=== PATIENT | female | born 1970 | race Caucasian/White ===

== ENCOUNTER 2016-09-30 12:45 | Emergency (ER) | payer BC ==
[~2016-09-30] VITALS: Ht 162.6 cm; Wt 100.0 kg
[~2016-09-30 12:45] MED LIST: AMIT50TA3 PO; AMLO5TAB4 PO; CARI350T PO; FERR-55 PO; GEMF600T60 PO; GLIM2TAB PO; LEVO100T82 PO; LORA-441 PO; METO-448 PO; NORC 5-325 GTB; PANT40TA3 PO; SUMA100T9 PO; TIZA2TAB PO; TOPI-44 PO
[2016-09-30 12:50] VITALS: Ht 162.6 cm; Wt 100.0 kg
[2016-09-30 13:51] LABS: ADD SCAN DIFF NO
[2016-09-30 14:17] LABS: BASOPHIL # 0.1 10^3/ul (0.0-0.1); BASOPHILS % 0.8 % (0.0-2.0); EOSINOPHILS # 0.3 10^3/ul (0.0-0.5); EOSINOPHILS % 2.9 % (0.0-7.0); HEMATOCRIT 40.5 % (37.0-47.0); HEMOGLOBIN 13.2 g/dl (12.0-16.0); LYMPHOCYTES # 3.7 10^3/ul (0.8-2.9); LYMPHOCYTES % 32.8 % (15.0-51.0); MEAN CORPUSCULAR HEMOGLOBIN 27.9 pg (29.0-33.0); MEAN CORPUSCULAR HGB CONC 32.6 g/dl (32.0-37.0); MEAN CORPUSCULAR VOLUME 85.6 fl (82.0-101.0); MONOCYTE # 0.5 10^3/ul (0.3-0.9); MONOCYTES % 4.7 % (0.0-11.0); NEUTROPHIL # 6.5 10^3/ul (1.6-7.5); NEUTROPHILS % 58.4 % (39.0-77.0); PLATELET COUNT 249 10^3/UL (140-415); RED BLOOD COUNT 4.73 10^6/ul (4.20-5.40); WHITE BLOOD COUNT 11.2 10^3/ul (4.8-10.8)
--- NOTE | 2016-09-30 14:50 | ERA ---
ER Documentation Chief Complaint Date/Time DATE: 09/30/16 TIME: 14:46 Chief Complaint TOTAL BODY ACHE, HEADACHE AND SORE THROAT HPI This a 45-year-old female who was diagnosed with a pulmonary embolism 3 months ago and was taking Coumadin. She was switched to Eliquis 3 days ago. She says ever since she started taking Eliquis she has had nausea vomiting in the morning and sometimes run the afternoon she is also having chest pain described as a pressure sensation with some shortness of breath and having some sense of impending doom and panic. She says she is under a lot of stress but no history of panic or anxiety attacks in the past. She called the ambulance to pick her up and then on the way in here the patient grabbed her own throat and started strangling herself. Paramedics say she was doing a hard and long enough that her lips started to turn blue. There were able to pull her hands off of her neck successfully then later in the ambulance ride she did it again. When I questioned the patient about this and her being suicidal she starts to cry and nods her head "yes". She says she is just tired of it all. She says she was fine until she started taking this Eliquis medication ROS All systems reviewed and are negative except as per history of present illness. Medications Home Meds Active Scripts Pantoprazole* (Protonix*) 40 Mg Tablet., 40 MG PO DAILY, #20 TAB Prov:EMANUEL THORPE MD 11/09/14 Reported Medications Amitriptyline Hcl* (Amitriptyline Hcl*) 50 Mg Tablet, 50 MG PO HS, TAB 11/09/14 Gemfibrozil* (Gemfibrozil*) 600 Mg Tablet, 600 MG PO BID, TAB 11/09/14 Levothyroxine Sodium* (Levoxyl*) 100 Mcg Tablet, 100 MCG PO AC BREAKFAST, TAB 11/09/14 Glimepiride* (Glimepiride*) 2 Mg Tablet, 2 MG PO WITH BREAKFAST, TAB 11/09/14 Sumatriptan Succinate* (Imitrex*) 100 Mg Tablet, 100 MG PO BID Y for HEADACHE, TAB May repeat after 2 hours if needed; MAX 200 mg/24 hours 11/09/14 Tizanidine Hcl* (Tizanidine Hcl*) 2 Mg Tablet, 2 MG PO QHS Y for SLEEP, TAB 11/09/14 Amlodipine Besylate* (Norvasc*) 5 Mg Tablet, 5 MG PO DAILY, TAB 11/09/14 Topiramate* (Topiramate*) 25 Mg Tablet, 25 MG PO BID, TAB 11/09/14 Hydrocodone Bit-Acetaminophen* ([place]*) 1 Tab Tab, 1 TAB GTB Q6 Y for PAIN, TAB 06/18/13 Carisoprodol* (Soma*) 350 Mg Tablet, 350 MG PO TID 06/18/13 Lorazepam* (Ativan*) 0.5 Mg Tablet, 1 MG PO Q8NARC Y for ANXIETY 06/18/13 Ferrous Sulfate* (Ferrous Sulfate*) 325 Mg Tablet, 325 MG PO BID 06/18/13 Metoprolol Tartrate* (Lopressor*) 25 Mg Tab, 25 MG PO BID, TAB 06/18/13 Allergies Allergies: Coded Allergies: metoclopramide (Verified Allergy, Unknown, 11/09/14) PMhx/Soc History of Surgery: Yes (COLON SURGERY) Anesthesia Reaction: No Hx Neurological Disorder: No Hx Respiratory Disorders: No Hx Cardiac Disorders: No Hx Psychiatric Problems: No Hx Miscellaneous Medical Probl: Yes (HISTORY OF DIVERTICULITIS) Hx Alcohol Use: No Hx Substance Use: No Hx Tobacco Use: No Smoking Status: Never smoker FmHx Family History: No coronary disease Physical Exam Vitals Vital Signs Date Time Temp Pulse Resp B/P Pulse Ox O2 Delivery O2 Flow Rate FiO2 09/30/16 14:38 98.1 90 20 133/78 95 Room Air 09/30/16 12:50 99.6 112 20 150/80 98 Physical Exam Const: Well-developed, well-nourished Head: Atraumatic, normocephalic Eyes: Normal Conjunctiva, PERRLA, EOMI, normal sclera, no nystagmus ENT: Normal External Ears, Nose and Mouth, moist mucus membranes. Neck: Full range of motion. No meningismus, no lymphadenopathy. Resp: Clear to auscultation bilaterally, no wheezing, rhonchi, rales Cardio: Regular rate and rhythm, no murmurs, S1 S2 present Abd: Soft, non tender x 4, non distended. Normal bowel sounds, no guarding or rebound, no pulsitile abdominal masses or bruits Skin: No petechiae or rashes, no ecchymosis , no maculopapular rash Back: No midline or flank tenderness Ext: No cyanosis, or edema, FROM x 4, normal inspection, neurovascularly intact x 4 Neur: Awake and alert, STR 5/5 x 4, sensation intact x 4, no focal findings, cerebellum intact Psych: Anxious and tearful, admits suicidal ideation Result Diagram: 09/30/16 1305 Results 24 hrs Laboratory Tests Test 09/30/16 13:05 White Blood Count 11.210^3/ul Red Blood Count 4.7310^6/ul Hemoglobin 13.2g/dl Hematocrit 40.5% Mean Corpuscular Volume 85.6fl Mean Corpuscular Hemoglobin 27.9pg Mean Corpuscular Hemoglobin Concent 32.6g/dl Red Cell Distribution Width 16.0% Platelet Count 72603^3/UL Mean Platelet Volume 12.0fl Neutrophils % 58.4% Lymphocytes % 32.8% Monocytes % 4.7% Eosinophils % 2.9% Basophils % 0.8% Nucleated Red Blood Cells % 0.0/100WBC Neutrophils # 6.510^3/ul Lymphocytes # 3.710^3/ul Monocytes # 0.510^3/ul Eosinophils # 0.310^3/ul Basophils # 0.110^3/ul Nucleated Red Blood Cells # 0.010^3/ul Procedures/MDM EKG: Rate/Rhythm: Normal sinus rhythm heart rate 95 QRS, ST, QT: NORMAL RI, QRS, prolonged QT] Impression: Abnormal EKG] This patient is having an anxiety reaction to me. Will workup the PE history with CT angios chest as well as obtain a troponin. Do not feel her chest pain shortness of breath is a cardiopulmonary issue but is more of a psychiatric issue. I feel she is having more anxiety reaction/panic attack here. If her workup is normal for the PE and cardiac enzymes are negative she will be cleared for tele-psychiatric evaluation for inpatient admission for her suicidal thoughts. Departure Diagnosis: Primary Impression: Suicidal ideation Additional Impression: Anxiety reaction Condition: Stable SANTINO PUGH DO Sep 30, 2016 14:50
[2016-09-30] MEDS ORDERED: ONDANSETRON 4 MG INJ IV STA (14:51)
[2016-09-30] MEDS ORDERED: HYDROmorphONE 1 MG/ML SYG IV STA (14:51)
[2016-09-30 15:01] LABS: ACETAMINOPHEN < 10.0 ug/ml (10.0-30.0); ANION GAP 17 (8-16); BLOOD UREA NITROGEN 10 mg/dl (7-20); CALCIUM 8.9 mg/dl (8.4-10.2); CARBON DIOXIDE 22 mmol/L (21-31); CHLORIDE 103 mmol/L (97-110); CREATININE 0.56 mg/dl (0.44-1.00); GLUCOSE 84 mg/dl (70-220); SALICYLATE < 1.0 mg/dl (5.0-30.0); SODIUM 138 mmol/L (135-144)
[2016-09-30 15:02] LABS: ETHANOL < 10.0 mg/dl
[2016-09-30 15:05] LABS: BARBITURATES Positive (NEGATIVE)
[2016-09-30 15:09] LABS: INR 0.9; PROTIME 12.1 Sec (12.2-14.2); PT RATIO 0.9
[2016-09-30 15:12] LABS: BENZODIAZEPINES Negative (NEGATIVE); CANNABINOIDS Negative (NEGATIVE); COCAINE Negative (NEGATIVE); OPIATES Negative (NEGATIVE)
[2016-09-30 15:13] LABS: TROPONIN-I < 0.012 ng/ml (0.00-0.12)
[2016-09-30] MEDS ORDERED: HALOPERIDOL 5 MG INJ IM ONE ×2 (16:00→23:00)
[2016-09-30] MEDS ORDERED: SOD CHLORIDE 0.9% 100 ML ONE (16:43)
[2016-09-30] MEDS ORDERED: IODIXANOL LOCM 100 ML BTL ONE (16:43)
[2016-09-30] MEDS ORDERED: IODIXANOL LOCM 50 ML BTL ONE (16:43)
--- NOTE | 2016-09-30 17:37 | RADRPT ---
PROCEDURE: CTA Chest with contrast and with 3-D reconstructions CLINICAL INDICATION: SOB TECHNIQUE: The study was performed utilizing multidetector CT scanner. Direct spiral axial section s were obtained from the thoracic inlet to the upper abdomen with the use of intravenous contrast ma terial. Sagittal, coronal and 3-D reformations were obtained. The images were reviewed on a PACS wor kstation. DLP 709.14 mGycm CTDIvol 2.82, 2.82, 30.90, 18.69 mGy One or more of the following dose reduction techniques were used: - Automated exposure control. - Adjustment of the mA and/or kV according to patient size. - Use of iterative reconstruction technique. COMPARISON: No prior studies are available for comparison. FINDINGS: There are no pulmonary emboli. The lungs are clear. There is no pleural fluid. There is no pneumothorax. Heart size is within normal limits. There is no pericardial fluid. The aorta is within normal limi ts. A bovine arch is noted. There are no enlarged axillary or mediastinal lymph nodes. The liver demonstrates decreased density consistent with fatty infiltration. There is a 3 cm simple cyst in the upper pole of the right kidney. Osseous and soft tissue structures are within normal limits. IMPRESSION: No CT evidence for pulmonary embolus. Clear lungs. Fatty infiltration of the liver. RPTAT: EE Physician Verito Date Time Electronically viewed and signed by Physician Verito on 09/30/2016 17:36 /
[2016-09-30] MEDS ORDERED: APIX2.5T PO (18:45)
[2016-09-30] MEDS ORDERED: ESCI20TA38 PO (18:46)
[2016-09-30] MEDS ORDERED: MIRT15TA5 PO (18:47)
[2016-09-30] MEDS ORDERED: AMLO-147 PO (18:48)
[2016-09-30] MEDS ORDERED: GABA400C14 PO (18:48)
[2016-09-30] MEDS ORDERED: WARF5TAB72 PO (18:49)
[2016-09-30] MEDS ORDERED: METO-429 PO (18:50)
[2016-09-30] MEDS ORDERED: ERGO500037 PO (18:51)
[2016-09-30] MEDS ORDERED: SUMA100T4 PO (18:52)
[2016-09-30] MEDS ORDERED: HYDR-905 PO (18:54)
[2016-09-30] MEDS ORDERED: HYDR-906 PO (18:54)
[2016-09-30] MEDS ORDERED: LISI20TA11 PO (18:55)
--- NOTE | 2016-09-30 20:28 | PSY ---
Date/Time of Note Date/Time of Note DATE: 09/30/16 TIME: 20:23 Psychiatric Subjective Eval Consent Pt consented to telemedicine: Yes Subjective Evaluation Patient location: emergency Chief Complaint: TOTAL BODY ACHE, HEADACHE AND SORE THROAT Reason for consult: Suicide attempt History of present illness Pt is a 45 year old female with a history of depression who came to the ER today via ambulance because of pain. While in ambulance, she choked herself to the point that she became cyanotic. At ER, patient admits to suicidal ideation but does not want to talk about it. To me, she reports that "someone was choking me." When I confronted her with the information that she was choking herself, she replied "I am so tired." Pt reports chronic pain issues. Does not want to live anymore. Feels tired with the pain. However, not acutely suicidal at this time because she is not in pain. Past psychiatric history Depression. Treatment outpatient. Does not know her medications. Hospitalization: no Family History Denies Medical history Problems Medical Problems: (1) Anxiety reaction Status: Acute (2) Chronic pain Status: Acute (3) Gastritis Status: Acute (4) Suicidal ideation Status: Acute Allergies: Coded Allergies: metoclopramide (Verified Allergy, Unknown, 09/30/16) Social History Marital status: Level of education: Unk DPA/Conservatorship: No Occupation/Senior Living: [employer] Psychiatric Objective Eval Mental Status Examination: Appearance: Groomed Eye Contact: Good Psychomotor Activity: Slow Behavior: Guarded Speech: Soft Mood: Depressed Though Process: Linear Thought Content: Normal Suicidal: Yes Homicidal: No Orientation: x4 Cognition: Drowsy Insight: Impared Judgement: Impared Laboratory Results Laboratory Tests Test 09/30/16 13:05 09/30/16 13:20 09/30/16 14:00 09/30/16 14:10 White Blood Count 11.210^3/ul Red Blood Count 4.7310^6/ul Hemoglobin 13.2g/dl Hematocrit 40.5% Mean Corpuscular Volume 85.6fl Mean Corpuscular Hemoglobin 27.9pg Mean Corpuscular Hemoglobin Concent 32.6g/dl Red Cell Distribution Width 16.0% Platelet Count 00188^3/UL Mean Platelet Volume 12.0fl Neutrophils % 58.4% Lymphocytes % 32.8% Monocytes % 4.7% Eosinophils % 2.9% Basophils % 0.8% Nucleated Red Blood Cells % 0.0/100WBC Neutrophils # 6.510^3/ul Lymphocytes # 3.710^3/ul Monocytes # 0.510^3/ul Eosinophils # 0.310^3/ul Basophils # 0.110^3/ul Nucleated Red Blood Cells # 0.010^3/ul Urine Opiates Screen Negative Urine Barbiturates Positive Urine Amphetamines Screen Negative Urine Benzodiazepines Screen Negative Urine Cocaine Screen Negative Urine Cannabinoids Negative Sodium Level 138mmol/L Potassium Level 4.0mmol/L Chloride Level 103mmol/L Carbon Dioxide Level 22mmol/L Anion Gap 17 Blood Urea Nitrogen 10mg/dl Creatinine 0.56mg/dl Glucose Level 84mg/dl Calcium Level 8.9mg/dl Troponin I < 0.012ng/ml Salicylates Level < 1.0mg/dl Acetaminophen Level < 10.0ug/ml Ethyl Alcohol Level < 10.0mg/dl Prothrombin Time 12.1Sec Prothrombin Time Ratio 0.9 INR International Normalized Ratio 0.90 Activated Partial Thromboplast Time 28.0Sec Assessment and Plan Assessment/Diagnosis [place] I: Major Depressive Disorder, Recurrent, Unspecified Recommendation/Plan Medication Management Per inpatient psychiatry Psychotherapy N/A Pt. Caregiver/Family Education N/A Follow-up/Disposition Pt actively attempted to take her life while in ambulance to hospital. She reports that she is tired and does not want to live anymore. She then states she is not suicidal as it is related to her pain. However, given the circumstances, she does not appear safe for discharge to home. Recommend 5150 and transfer to inpatient psychiatry. 5150 Recommendation: Morteza Juarez WILLY MUHAMMAD Sep 30, 2016 20:28
[2016-10-01] MEDS ORDERED: morphine 4 MG/ML VIAL IV STA (01:01)
[2016-10-01] MEDS ORDERED: ACETAMINOPHEN 500 MG TAB PO STA (05:06)
[2016-10-01] MEDS ORDERED: ONDANSETRON 4 MG INJ IV STA (05:06)
[2016-10-01] MEDS ORDERED: SUMATRIPTAN 50 MG TAB PO ONE (09:00)
[2016-10-01] MEDS ORDERED: AMLODIPINE 10 MG TAB PO SCH (10:00)
[2016-10-01] MEDS ORDERED: TIZANIDINE 2 MG TAB PO PRN (10:00)
[2016-10-01] MEDS ORDERED: SUMATRIPTAN 50 MG TAB PO PRN (10:00)
[2016-10-01] MEDS ORDERED: LISINOPRIL 20 MG TAB PO SCH (10:00)
[2016-10-01] MEDS: GABAPENTIN 400 MG CAP PO SCH ×2 (11:27→21:50)
[2016-10-01] MEDS: TOPIRAMATE 25 MG TAB PO SCH ×2 (11:27→21:51)
[2016-10-01] MEDS: APIXABAN 5 MG TABLET PO SCH ×2 (11:28→21:51)
[2016-10-01] MEDS: METOPROLOL 50 MG TAB PO SCH ×2 (11:33→21:50)
[2016-10-01] MEDS ORDERED: LORAZEPAM 1 MG TAB PO ONE (14:30)
[2016-10-01] MEDS ORDERED: HYDROCODONE/APAP (10/325) TAB PO ONE (17:30)
[2016-10-01] MEDS ORDERED: MIRTAZAPINE 15 MG TAB PO SCH (21:00)
[2016-10-02] MEDS ORDERED: HYDROCODONE/APAP (10/325) TAB PO ONE (04:00)
[2016-10-02] MEDS ORDERED: ONDANSETRON 4 MG INJ IV ONE (05:28)
[2016-10-02] MEDS ORDERED: morphine 2 MG INJ IV ONE (05:30)
[2016-10-02 05:40] LABS: URINE BLOOD (Dip) POC Negative (NEGATIVE)
--- NOTE | 2016-10-02 06:18 | RADRPT ---
PROCEDURE: CT Abdomen and pelvis without contrast. CLINICAL INDICATION: Left lower quadrant abdominal pain TECHNIQUE: CT scan of the abdomen and pelvis without contrast was performed on a multidetector hig h-resolution CT scan. . Coronal and sagittal reformatted images were obtained from the axial [facility] e images. Standard CT scan of the abdomen pelvis without contrast protocols were performed. The total exam CTDI equals 21.49 mGy and the total exam DLP equals 1334.88 mGy-cm. One or more of the following dose reduction techniques were used: - Automated exposure control. - Adjustment of the mA and/or kV according to patient size. Use of iterative reconstruction technique. COMPARISON: CT abdomen pelvis 11/17/2013 FINDINGS: Again noted is previous partial resection of the descending colon and anastomotic line and adjacent surgical clips. There is mild diverticular changes of the descending colon but no CT evidence of div erticulitis. The stomach and small bowel are unremarkable. The appendix is unremarkable. Status post hysterectomy. Urinary bladder is decompressed but otherwise unremarkable. The kidneys are normal in size. No change and no punctate 1-2 mm right mid renal calcified calculus. No other calcified renal calculi or hydronephrosis bilaterally. No change in bilateral superior renal cysts . The no change in an ill-defined small low density involving the lateral right mid kidney. No new intra renal lesions. There is mild hepatomegaly with diffuse inhomogeneous fatty infiltration. No focal hepatic lesions. The spleen is borderline normal limits in size without focal lesions. The pancreas and adrenal glan ds are unremarkable. There is increased density within the gallbladder lumen consistent with sludge . No gallbladder wall thickening or pericholecystic. Negative for biliary ductal dilation. Negative for intra-abdominal free air, free fluid, abscesses or lymphadenopathy. There are nonspeci fic lymph nodes in the right lower quadrant of the abdomen. There is dependent lung atelectasis. The lung bases are otherwise unremarkable. The abdominal pelv ic [place] are unremarkable. The aorta is unremarkable. The osseous structures are unremarkable without acute osseous findings are osteoblastic/osteolytic l esions. IMPRESSION: 1. Status post resection of distal colon with an unremarkable anastomoses. Mild diverticular tilley es of the descending colon but no CT evidence of diverticulitis. 2. Status post hysterectomy. 3. Mild hepatomegaly and hepatic fatty infiltration but no focal hepatic lesions. 4. No change in the tiny 1 2 mm right mid renal calcified calculus. No other calcified urinary [place] culi or obstructive uropathy. 5. No change of bilateral renal cysts. No new intra renal lesions. 6. Sludge within the gallbladder but no gallbladder wall thickening appear coarse.. Negative for b iliary ductal dilation. RPTAT:AAJJ Physician Freddy Date Time Electronically viewed and signed by Jam Felton Physician on 10/02/2016 06:18 BM/
[2016-10-02] MEDS: APIXABAN 5 MG TABLET PO SCH (08:26)
[2016-10-02] MEDS ORDERED: OXYCODONE/ACETAMINOPHEN (5/325) TAB PO ONE (08:30)
[2016-10-02 08:34] VITALS: BP 136/88; PULSE 74; RESP 17; TEMP 98
[2016-10-02] MEDS: METOPROLOL 50 MG TAB PO SCH (08:41)
[2016-10-05] MEDS ORDERED: ERGOCALCIFEROL 50,000 UNIT CAP PO SCH (09:00)
== END 2016-10-02 08:50 | disposition home or self-care (01) ==
LOC: E/R 12:45
DX: R45.851 Suicidal ideations (principal); F41.1 Generalized anxiety disorder; R06.02 Shortness of breath; Z79.84 Long term (current) use of oral hypoglycemic drugs
CPT/HCPCS: 36415; 71275; 74176; 80048; 80306; 80307; 81003; 84484; 85025; 85610; 85730; 93005; 96372; 96374; 96375; 96376; J1170; J1630; J2270; J2405; Q9967; Z7502; Z7610

== ENCOUNTER 2017-09-21 14:29 | Inpatient (IN) | END 2017-09-22 13:15 | disposition home or self-care (01) | DRG 313 ==